=== PATIENT | male | born 1965 | race Caucasian/White ===

== ENCOUNTER 2017-02-13 04:08 | Inpatient (IN) | payer MEDICARE ==
[~2017-02-13] VITALS: Ht 182.9 cm; Wt 96.2 kg
[2017-02-13] MEDS ORDERED: SODIUM CHLORIDE 0.9% 1,000ML IVBOLUS ONE (04:30)
[2017-02-13] MEDS ORDERED: ONDANSETRON 2MG/ML, 2ML IVPush ONE (04:30)
[2017-02-13] MEDS ORDERED: NALOXONE 1 MG/ML, 2ML IVPush ONE (04:30)
[2017-02-13] MEDS ORDERED: NALOXONE 1 MG/ML, 2ML ONE (04:41)
[2017-02-13] MEDS ORDERED: OMNIPAQUE 350 MG/ML, 100ML BOTTLE ONE (04:51)
[2017-02-13 05:07] LABS: ASPARTATE AMINO TRANSFERASE 23 U/L (15-37); BLOOD UREA NITROGEN 6 mg/dL (7-18)
[2017-02-13 05:13] LABS: ACETAMINOPHEN < 2 mcg/mL (10-30); IS PT STATUS REG ER OR PRE ER? YES
[2017-02-13 05:46] LABS: DAU SCREEN DISCLAIMER
[2017-02-13] MEDS: PROPOFOL 100 ML IV PRN ×3 (05:50→20:43)
[2017-02-13] MEDS ORDERED: POTASSIUM CHLORIDE 20 MEQ in SODIUM CHLORIDE 0.9% 1,000 ML IV ONE (06:29)
[2017-02-13] MEDS ORDERED: ONDANSETRON 2MG/ML, 2ML IVPush PRN (06:30)
[2017-02-13] MEDS ORDERED: VANCOMYCIN PER PHARMACY MC ONE (06:30)
[2017-02-13] MEDS ORDERED: VANCOMYCIN 2,000 MG in SODIUM CHLORIDE 0.9% 500 ML IV ONE (06:30)
[2017-02-13] MEDS ORDERED: PIPERACILLIN/TAZO 3.375 GM in SODIUM CHLORIDE 0.9% 50 ML IVPB ONE (06:30)
[2017-02-13] MEDS ORDERED: PIPERACILLIN/TAZO/PMX 3.375GM 50 ML ONE (06:32)
[2017-02-13] MEDS ORDERED: ONDANSETRON 2MG/ML, 2ML ONE (06:32)
[2017-02-13] MEDS ORDERED: NS + 20MEQ KCL 1,000 ML IV ONE (06:32)
[2017-02-13 06:44] LABS: ABG COLLECTION SITE RIGHT RADIAL; COLLATERAL CIRCULATION TESTING NORMAL
[2017-02-13 06:54] LABS: DAU SCREEN DISCLAIMER
[2017-02-13] MEDS ORDERED: PROPOFOL 100 ML IV PRN (07:05)
[2017-02-13] MEDS ORDERED: BISACODYL 10 MG SUPP PR PRN ×2 (07:30→09:00)
[2017-02-13] MEDS: ALBUTEROL/IPRATROPIUM 2.5MG/0.5MG, 3 ML INLINE SCH ×5 (07:30→21:54)
[2017-02-13] MEDS ORDERED: SENNA/DOCUSATE TABLET NG PRN (07:30)
[2017-02-13] MEDS ORDERED: FENTANYL PF 100 MCG/2ML IVPush PRN (07:30)
[2017-02-13] MEDS ORDERED: LIDOCAINE-MPF 1%, 2ML ENDO PRN (07:30)
[2017-02-13] MEDS ORDERED: SENNOSIDES 8.8 MG/5 ML ORAL SOL NG PRN (07:30)
[2017-02-13] MEDS ORDERED: PHARMACY MAY ADJ FOR RENAL FX MC SCH (07:30)
[2017-02-13] MEDS ORDERED: LACTULOSE 20 GM/30 ML UDC NG PRN (07:30)
[2017-02-13] MEDS ORDERED: ETOMIDATE 20 MG/10 ML ONE (09:00)
[2017-02-13] MEDS ORDERED: POLYETHYLENE GLYCOL 17 GM PACKET PO PRN (09:00)
[2017-02-13] MEDS ORDERED: VECURONIUM 10 MG ONE (09:00)
[2017-02-13] MEDS ORDERED: SUCCINYLCHOLINE 20 MG/ML, 10ML ONE ×2 (09:00)
[2017-02-13] MEDS ORDERED: PROPOFOL 10 MG/ML, 100ML IV ONE (09:00)
[2017-02-13] MEDS: PIPERACILLIN/TAZO 3.375 GM in SODIUM CHLORIDE 0.9% 50 ML IV SCH ×3 (09:42→19:42)
[2017-02-13] MEDS: ENOXAPARIN 40 MG/0.4 ML SQ SCH (09:42)
[2017-02-13] MEDS: FAMOTIDINE 20 MG/2 ML IV SCH ×2 (09:42→19:42)
[2017-02-13] MEDS: [UNRECOGNIZED DRUG - OTHER] IV SCH (09:43)
[2017-02-13] MEDS: SODIUM CHLORIDE 0.9% 1,000 ML IV SCH ×3 (09:43→19:39)
[2017-02-13] MEDS: POTASSIUM CHLORIDE IV SCH (09:43)
[2017-02-13] MEDS: FOLIC ACID IV SCH (09:43)
[2017-02-13] MEDS: MVI ADULT IV SCH (09:43)
[2017-02-13] MEDS: THIAMINE IV SCH (09:43)
[2017-02-13] MEDS: INSULIN REGULAR 100 UNITS/ML, 3ML VIAL SQ-INSULIN SCH ×3 (11:00→23:00)
[2017-02-13] MEDS ORDERED: FLUO40CA2 PO (12:04)
[2017-02-13] MEDS ORDERED: QUET100T PO (12:04)
[2017-02-13] MEDS ORDERED: ZIPR20CA3 PO (12:04)
[2017-02-13] MEDS ORDERED: CLON2TAB16 PO (12:04)
[2017-02-13] MEDS ORDERED: BUSP15TA PO (12:04)
[2017-02-13] MEDS ORDERED: QUET300T PO (12:04)
[2017-02-13] MEDS ORDERED: PRAZ2CAP2 PO (12:04)
[2017-02-13] MEDS ORDERED: LORazepam 2 MG/ML, 1ML IV PRN ×4 (13:00)
[2017-02-13 14:05] LABS: IS PT STATUS REG ER OR PRE ER? NO
[2017-02-13] MEDS ORDERED: DIAZEPAM 5 MG/ML, 2ML IV SCH (17:00)
[2017-02-13] MEDS ORDERED: ACETAMINOPHEN 650 MG SUPP PR PRN (17:00)
[2017-02-13] MEDS: DIAZEPAM 5 MG/ML, 2ML IV SCH (17:13)
[2017-02-13] MEDS ORDERED: ACETAMINOPHEN 325 MG TABLET ONE (19:26)
[2017-02-13] MEDS: ACETAMINOPHEN 325 MG TABLET PO PRN (19:40)
[2017-02-13] MEDS: ASPIRIN 81 MG TABLET CHEW PO SCH (20:44)
[2017-02-13 21:39] LABS: IS PT STATUS REG ER OR PRE ER? NO
[2017-02-14] MEDS: PROPOFOL 100 ML IV PRN ×4 (00:30→10:19)
[2017-02-14] MEDS: DIAZEPAM 5 MG/ML, 2ML IV SCH ×3 (00:33→16:43)
[2017-02-14] MEDS: PIPERACILLIN/TAZO 3.375 GM in SODIUM CHLORIDE 0.9% 50 ML IV SCH ×4 (01:38→20:52)
[2017-02-14] MEDS: ALBUTEROL/IPRATROPIUM 2.5MG/0.5MG, 3 ML INLINE SCH ×3 (02:06→11:30)
[2017-02-14 02:30] LABS: IS PT STATUS REG ER OR PRE ER? NO
[2017-02-14 04:39] VITALS: BP 101/55
[2017-02-14 04:51] LABS: ABG COLLECTION SITE LEFT RADIAL; COLLATERAL CIRCULATION TESTING NORMAL
[2017-02-14] MEDS: INSULIN REGULAR 100 UNITS/ML, 3ML VIAL SQ-INSULIN SCH ×4 (05:00→23:00)
[2017-02-14 05:16] LABS: ASPARTATE AMINO TRANSFERASE 42 U/L (15-37); BLOOD UREA NITROGEN 6 mg/dL (7-18)
[2017-02-14] MEDS: ENOXAPARIN 40 MG/0.4 ML SQ SCH (08:00)
[2017-02-14] MEDS: FAMOTIDINE 20 MG/2 ML IV SCH ×2 (08:00→20:52)
[2017-02-14] MEDS: SODIUM CHLORIDE 0.9% 1,000 ML IV SCH (08:01)
[2017-02-14] MEDS: QUETIAPINE 25MG TABLET PO SCH ×2 (10:19→16:43)
[2017-02-14] MEDS: ASPIRIN 81 MG TABLET CHEW PO SCH (10:20)
[2017-02-14] MEDS: FOLIC ACID IV SCH (10:53)
[2017-02-14] MEDS: THIAMINE IV SCH (10:53)
[2017-02-14] MEDS: [UNRECOGNIZED DRUG - OTHER] IV SCH (10:53)
[2017-02-14] MEDS: MVI ADULT IV SCH (10:53)
[2017-02-14] MEDS: POTASSIUM CHLORIDE IV SCH (10:53)
[2017-02-14] MEDS ORDERED: MIDAZOLAM 1 MG/ML, 5ML ONE ×3 (11:08→11:49)
[2017-02-14] MEDS ORDERED: MIDAZOLAM 1 MG/ML, 5ML IVPush ONE (12:00)
[2017-02-14] MEDS: ACETAMINOPHEN 325 MG TABLET PO PRN ×2 (14:35→19:11)
[2017-02-14] MEDS ORDERED: NICOTINE 14MG/24 HR PATCH.TD24 TD ONE (20:30)
[2017-02-15] MEDS: QUETIAPINE 25MG TABLET PO SCH ×3 (01:26→18:20)
[2017-02-15 01:30] VITALS: BP 110/66
[2017-02-15] MEDS: PIPERACILLIN/TAZO 3.375 GM in SODIUM CHLORIDE 0.9% 50 ML IV SCH ×2 (03:34→11:18)
[2017-02-15] MEDS: INSULIN REGULAR 100 UNITS/ML, 3ML VIAL SQ-INSULIN SCH ×2 (05:00→11:00)
[2017-02-15 05:37] LABS: ASPARTATE AMINO TRANSFERASE 39 U/L (15-37); BLOOD UREA NITROGEN 5 mg/dL (7-18)
[2017-02-15 06:57] VITALS: BP 116/67
[2017-02-15] MEDS ORDERED: SODIUM CHLORIDE 0.9% 1,000 ML IV SCH (07:30)
[2017-02-15] MEDS: ASPIRIN 81 MG TABLET CHEW PO SCH (09:45)
[2017-02-15] MEDS: FAMOTIDINE 20 MG/2 ML IV SCH (09:46)
[2017-02-15] MEDS: ENOXAPARIN 40 MG/0.4 ML SQ SCH (09:46)
[2017-02-15] MEDS: [UNRECOGNIZED DRUG - OTHER] IV SCH (11:17)
[2017-02-15] MEDS: MVI ADULT IV SCH (11:17)
[2017-02-15] MEDS: THIAMINE IV SCH (11:17)
[2017-02-15] MEDS: POTASSIUM CHLORIDE IV SCH (11:17)
[2017-02-15] MEDS: FOLIC ACID IV SCH (11:17)
[2017-02-15 15:34] VITALS: BP 122/71
[2017-02-15] MEDS: LORazepam 2 MG/ML, 1ML IV PRN ×2 (15:48→19:37)
[2017-02-15 19:15] VITALS: BP 126/74
[2017-02-15] MEDS: SODIUM CHLORIDE 0.45% 1,000 ML IV SCH (19:36)
[2017-02-15] MEDS: FAMOTIDINE 20 MG TABLET PO SCH (19:37)
[2017-02-16] MEDS: SODIUM CHLORIDE 0.45% 1,000 ML IV SCH ×3 (01:47→18:40)
[2017-02-16] MEDS: QUETIAPINE 25MG TABLET PO SCH ×3 (01:47→10:27)
[2017-02-16 03:57] VITALS: BP 136/78
[2017-02-16 05:38] LABS: BLOOD UREA NITROGEN 6 mg/dL (7-18)
[2017-02-16] MEDS: LORazepam 2 MG/ML, 1ML IV PRN ×2 (07:11→10:28)
[2017-02-16 07:25] VITALS: BP 163/68
[2017-02-16] MEDS: ENOXAPARIN 40 MG/0.4 ML SQ SCH (09:00)
[2017-02-16] MEDS: FAMOTIDINE 20 MG TABLET PO SCH ×2 (09:00→20:29)
[2017-02-16] MEDS: ASPIRIN 81 MG TABLET CHEW PO SCH (10:27)
[2017-02-16] MEDS ORDERED: QUETIAPINE 100MG TABLET PO ONE (12:15)
[2017-02-16] MEDS ORDERED: HALOPERIDOL 5 MG/ML IM PRN (12:30)
[2017-02-16 12:44] VITALS: BP 146/90
[2017-02-16] MEDS: FLUOXETINE 20 MG CAPSULE PO SCH (14:34)
[2017-02-16 18:42] VITALS: BP 130/74
[2017-02-16] MEDS ORDERED: PRAZOSIN 1 MG CAPSULE PO SCH (21:00)
[2017-02-16] MEDS ORDERED: QUETIAPINE 100MG TABLET PO SCH (21:00)
[2017-02-16] MEDS ORDERED: QUETIAPINE 200 MG TABLET PO SCH (21:00)
[2017-02-17] MEDS: SODIUM CHLORIDE 0.45% 1,000 ML IV SCH ×2 (01:20→07:39)
[2017-02-17 05:11] VITALS: BP 101/58
[2017-02-17 05:19] LABS: BLOOD UREA NITROGEN 12 mg/dL (7-18)
[2017-02-17 07:41] VITALS: BP 124/75
[2017-02-17] MEDS: ASPIRIN 81 MG TABLET CHEW PO SCH (08:18)
[2017-02-17] MEDS: FAMOTIDINE 20 MG TABLET PO SCH ×2 (08:19→21:40)
[2017-02-17] MEDS: FLUOXETINE 20 MG CAPSULE PO SCH (08:19)
[2017-02-17] MEDS: QUETIAPINE 100MG TABLET PO SCH ×2 (08:20→12:14)
[2017-02-17] MEDS: ENOXAPARIN 40 MG/0.4 ML SQ SCH (08:20)
[2017-02-17] MEDS ORDERED: POTASSIUM CHLORIDE 20 MEQ TAB.ER.PRT PO ONE (08:30)
[2017-02-17 10:05] LABS: PATH.CAST-FLAG NOT PRESENT; SPERM-FLAG NOT PRESENT; SRC-FLAG NOT PRESENT; XTAL-FLAG NOT PRESENT; YLC-FLAG NOT PRESENT
[2017-02-17 13:50] VITALS: BP 131/91
[2017-02-17] MEDS: ZIPRASIDONE 20MG CAPSULE PO SCH (21:00)
[2017-02-17] MEDS ORDERED: ZIPRASIDONE 20MG CAPSULE PO SCH (21:00)
[2017-02-17] MEDS ORDERED: QUETIAPINE 200 MG TABLET PO SCH (21:00)
[2017-02-17] MEDS: QUETIAPINE 200 MG TABLET PO SCH (21:40)
[2017-02-17 21:41] VITALS: BP 131/84
[2017-02-17] MEDS: PRAZOSIN 1 MG CAPSULE PO SCH (21:41)
[2017-02-17] MEDS: GABAPENTIN 100 MG CAPSULE PO SCH (22:22)
[2017-02-18 06:21] LABS: BLOOD UREA NITROGEN 14 mg/dL (7-18)
[2017-02-18 08:00] VITALS: BP 107/72
[2017-02-18] MEDS: ENOXAPARIN 40 MG/0.4 ML SQ SCH (08:20)
[2017-02-18] MEDS: GABAPENTIN 100 MG CAPSULE PO SCH ×2 (08:21→11:54)
[2017-02-18] MEDS: FAMOTIDINE 20 MG TABLET PO SCH ×2 (08:21→20:51)
[2017-02-18] MEDS: QUETIAPINE 100MG TABLET PO SCH ×2 (08:21→11:58)
[2017-02-18] MEDS: FLUOXETINE 20 MG CAPSULE PO SCH (08:21)
[2017-02-18] MEDS: ASPIRIN 81 MG TABLET CHEW PO SCH (08:21)
[2017-02-18] MEDS: LORazepam 1MG TABLET PO PRN (11:54)
[2017-02-18 19:48] VITALS: BP 110/78
[2017-02-18] MEDS: ZIPRASIDONE 20MG CAPSULE PO SCH (20:50)
[2017-02-18] MEDS: PRAZOSIN 1 MG CAPSULE PO SCH (20:50)
[2017-02-18] MEDS: QUETIAPINE 200 MG TABLET PO SCH (20:51)
[2017-02-19 08:06] VITALS: BP 137/87
[2017-02-19] MEDS: QUETIAPINE 100MG TABLET PO SCH ×2 (08:59→12:14)
[2017-02-19] MEDS: GABAPENTIN 100 MG CAPSULE PO SCH ×3 (09:00→20:50)
[2017-02-19] MEDS: FAMOTIDINE 20 MG TABLET PO SCH ×2 (09:01→20:50)
[2017-02-19] MEDS: FLUOXETINE 20 MG CAPSULE PO SCH (09:01)
[2017-02-19] MEDS: ENOXAPARIN 40 MG/0.4 ML SQ SCH (09:03)
[2017-02-19] MEDS: ASPIRIN 81 MG TABLET CHEW PO SCH (09:52)
[2017-02-19 19:53] VITALS: BP 134/87
[2017-02-19] MEDS: PRAZOSIN 1 MG CAPSULE PO SCH (20:50)
[2017-02-19] MEDS: ZIPRASIDONE 20MG CAPSULE PO SCH (20:51)
[2017-02-19] MEDS: QUETIAPINE 200 MG TABLET PO SCH (20:51)
[2017-02-20 07:10] VITALS: BP 131/85
[2017-02-20] MEDS: ASPIRIN 81 MG TABLET CHEW PO SCH (08:01)
[2017-02-20] MEDS: FAMOTIDINE 20 MG TABLET PO SCH (08:03)
[2017-02-20] MEDS: QUETIAPINE 100MG TABLET PO SCH ×2 (08:03→12:09)
[2017-02-20] MEDS: FLUOXETINE 20 MG CAPSULE PO SCH (08:03)
[2017-02-20] MEDS: GABAPENTIN 100 MG CAPSULE PO SCH ×3 (08:03→20:25)
[2017-02-20] MEDS: ENOXAPARIN 40 MG/0.4 ML SQ SCH (08:05)
[2017-02-20] MEDS: LORazepam 1MG TABLET PO PRN (09:41)
[2017-02-20] MEDS ORDERED: ZIPRASIDONE 20MG CAPSULE PO ONE (15:12)
[2017-02-20] MEDS: ACETAMINOPHEN 325 MG TABLET PO PRN (19:23)
[2017-02-20 19:39] VITALS: BP 116/74
[2017-02-20] MEDS: PRAZOSIN 1 MG CAPSULE PO SCH (20:25)
[2017-02-20] MEDS: QUETIAPINE 200 MG TABLET PO SCH (20:25)
[2017-02-21 07:52] VITALS: BP 129/78
[2017-02-21] MEDS: ZIPRASIDONE 20MG CAPSULE PO SCH (09:23)
[2017-02-21] MEDS: ASPIRIN 81 MG TABLET CHEW PO SCH (09:23)
[2017-02-21] MEDS: GABAPENTIN 100 MG CAPSULE PO SCH ×3 (09:24→21:00)
[2017-02-21] MEDS: QUETIAPINE 100MG TABLET PO SCH ×2 (09:24→12:29)
[2017-02-21 20:00] VITALS: BP 132/80
[2017-02-21] MEDS: PRAZOSIN 1 MG CAPSULE PO SCH (22:31)
[2017-02-21] MEDS: QUETIAPINE 200 MG TABLET PO SCH (22:31)
[2017-02-22 07:37] VITALS: BP 122/77
[2017-02-22] MEDS: ZIPRASIDONE 20MG CAPSULE PO SCH (08:40)
[2017-02-22] MEDS: ASPIRIN 81 MG TABLET CHEW PO SCH (08:40)
[2017-02-22] MEDS: GABAPENTIN 100 MG CAPSULE PO SCH ×3 (08:41→20:40)
[2017-02-22] MEDS: QUETIAPINE 100MG TABLET PO SCH ×2 (08:41→11:32)
[2017-02-22 19:19] VITALS: BP 127/80
[2017-02-22] MEDS: PRAZOSIN 1 MG CAPSULE PO SCH (20:39)
[2017-02-22] MEDS: QUETIAPINE 200 MG TABLET PO SCH (20:40)
[2017-02-23 07:46] VITALS: BP 133/86
[2017-02-23] MEDS: ASPIRIN 81 MG TABLET CHEW PO SCH (08:04)
[2017-02-23] MEDS: ZIPRASIDONE 20MG CAPSULE PO SCH (08:05)
[2017-02-23] MEDS: GABAPENTIN 100 MG CAPSULE PO SCH ×2 (08:06→15:49)
[2017-02-23] MEDS: QUETIAPINE 100MG TABLET PO SCH ×2 (08:06→11:41)
[2017-02-23] MEDS ORDERED: CALCIUM CARBONATE 500 MG TAB.CHEW PO PRN (16:30)
[2017-02-23] MEDS ORDERED: ZIPR20CA2 PO (17:09)
[2017-02-23] MEDS ORDERED: QUET200T PO (17:09)
[2017-02-23] MEDS ORDERED: ASPI-515 PO (17:09)
[2017-02-23] MEDS ORDERED: GABA100C8 PO (17:09)
[2017-02-23] MEDS ORDERED: QUET100T PO (17:09)
[2017-02-23] MEDS ORDERED: PRAZ1CAP2 PO (17:09)
== END 2017-02-23 17:07 | disposition home or self-care (01) | DRG 917 ==
LOC: ED 05:29 → EDIP 06:29 → CSU 07:44 → CCU 02-14 18:29 → 3NE 02-14 22:30 → 3E 02-17 18:02
PROVIDERS: ADMIT Hospitalist; ATTEND Hospitalist
PROC: 5A1935Z Respiratory Ventilation, Less than 24 Consecutive Hours (ICD-10-PCS; principal; 2017-02-13)
PROC: 0BH17EZ Insertion of Endotracheal Airway into Trachea, Via Natural or Artificial Opening (ICD-10-PCS; 2017-02-13)
DX: T42.4X2A Poisoning by benzodiazepines, intentional self-harm, initial encounter (principal); J96.01 Acute respiratory failure with hypoxia; G92 Toxic encephalopathy; J18.9 Pneumonia, unspecified organism; M62.82 Rhabdomyolysis; Z99.11 Dependence on respirator [ventilator] status; J98.11 Atelectasis; D72.829 Elevated white blood cell count, unspecified; E87.6 Hypokalemia; F43.10 Post-traumatic stress disorder, unspecified; F41.9 Anxiety disorder, unspecified; F32.9 Major depressive disorder, single episode, unspecified; F19.10 Other psychoactive substance abuse, uncomplicated; E11.65 Type 2 diabetes mellitus with hyperglycemia; F10.10 Alcohol abuse, uncomplicated; F20.9 Schizophrenia, unspecified; R45.850 Homicidal ideations; Z81.1 Family history of alcohol abuse and dependence; Z91.5 Personal history of self-harm; Y92.89 Other specified places as the place of occurrence of the external cause; T17.920A Food in respiratory tract, part unspecified causing asphyxiation, initial encounter
CPT/HCPCS: 31500; 36415; 36600; 70450; 70496; 70551; 71010; 72125; 80048; 80053; 80307; 80329; 81001; 82550; 82803; 82962; 83605; 83735; 84100; 84145; 84443; 84478; 84484; 85025; 87040; 87081; 93005; 93306; 94002; 94003; 94640; 95819; 96361; 96365; 96375; J1650; J2250; J2405; J2543; J2704; J3360; J3370; J3411; J3480; J7620; Q9967; G0480; J0330; J1630; J2060; J2310; J7030; J7040; S0028